=== PATIENT | male | born 2000 | race Caucasian/White ===

== ENCOUNTER 2023-06-13 21:15 | Emergency (ER) | payer SELFPAY ==
[2023-06-13 21:34] VITALS: BP 136/74; PULSE 82; RESP 17; TEMP 98.5; BMI 26.0
[2023-06-13] MEDS ORDERED: LIDOCAINE HCL 2% JELLY 10 ML CARTRIDGE ONE (21:41)
[2023-06-13] MEDS ORDERED: DEXTROSE 50%-WATER - 25 GM/50 ML VIAL IVPUSH ONE (21:48)
[2023-06-13] MEDS ORDERED: LIDOCAINE HCL 2% JELLY 10 ML CARTRIDGE UR ONE (21:48)
== END 2023-06-13 23:21 | disposition home or self-care (01) ==
LOC: FER 21:15
DX: N47.2 Paraphimosis (principal); N48.89 Other specified disorders of penis
CPT/HCPCS: 99282-25